=== PATIENT | female | born 1995 | race Two or more races ===

== ENCOUNTER → 2021-01-31 | Outpatient (CLI) | payer OTHER ==
--- NOTE | 2021-01-31 14:56 | REP ---
INDICATION: LT LEG PAIN, S/P KNEE SURGERY. COMPARISON: None. TECHNIQUE: Multiple ultrasonographic images of the deep venous structures of the left lower extremity were obtained from the inguinal ligament to the ankle. Venous compression techniques, color doppler imaging, and augmentation techniques were also obtained where appropriate. As per the ACR guidelines the anterior tibial vein can not be effectively evaluated. Only compression techniques in the calf on the peroneal and posterior tibial veins was attempted/performed. FINDINGS: There is no abnormal echogenic material seen within any of the visualized deep venous structures that would suggest acute thrombosis. Coaptation is unremarkable throughout. Doppler interrogation shows an expected response to respiratory variability and augmentation in the thigh. Compression techniques in the calf showed no abnormality. The color flow images show what appears to be a normal vascular pattern throughout the thigh. IMPRESSION: There is no ultrasonographic evidence of deep venous thrombosis involving any of the visualized deep venous structures of the left lower extremity as described above. <Electronically signed by Jimbo Tijerina > 01/31/21 [id number]
== END ==
LOC: M RAD 13:56
PROVIDERS: ATTEND Physician Assistant Surgical
DX: M79.662 Pain in left lower leg (principal); S83.282D Other tear of lateral meniscus, current injury, left knee, subsequent encounter; W18.30XD Fall on same level, unspecified, subsequent encounter; Y92.009 Unspecified place in unspecified non-institutional (private) residence as the place of occurrence of the external cause

== ENCOUNTER 2025-03-03 08:26 | Inpatient (IN) | payer MEDICAID, OTHER ==
[~2025-03-03] VITALS: Ht 165.1 cm; Wt 68.8 kg
[2025-03-03 09:57] LABS: KETONE, URINE AUTO RFX NEGATIVE (NEGATIVE); LEUKOCYTE ESTERASE UR AUTO RFX NEGATIVE (NEGATIVE); NITRITE, URINE AUTO RFX NEGATIVE (NEGATIVE); RBC, URINE AUTO RFX 0 /HPF (0-3); SQUAM EPITHELIAL CELL UR AURFX 4 /HPF (0-6); WBC, URINE AUTO RFX 0 /HPF (0-3)
[2025-03-03 10:07] LABS: BASO # 0.0 10^3/uL (0.0-0.2); BASO % 0.2 % (0.0-1.0); EOS # 0.1 10^3/uL (0.0-0.5); EOS % 0.6 % (0.0-3.0); LYMPH # 1.4 10^3/uL (1.5-5.0); LYMPH % 8.4 % (24.0-44.0); MONO # 0.7 10^3/uL (0.0-0.8); MONO % 4.6 % (2.0-8.0); NEUTROPHILS # 13.7 10^3/uL (1.5-8.5); NEUTROPHILS % 85.9 % (36.0-66.0)
[2025-03-03 10:07] LABS: URINE PREG TEST NEGATIVE (NEGATIVE)
[2025-03-03 10:09] LABS: PLATELET COUNT, AUTOMATED 247 10^3/uL (150-450)
[2025-03-03] MEDS ORDERED: ISOVUE-370 76% 100 ML VIAL As Ordered ONE (10:13)
[2025-03-03] MEDS: ONDANSETRON 4MG 2ML VIAL IV ONE ×2 (10:21→13:50)
[2025-03-03] MEDS: NS (Normal Saline) 0.9% 1,000 ML IV ONE (10:21)
[2025-03-03] MEDS: FAMOTIDINE 20 MG/2 ML VIAL IVP ONE (10:21)
[2025-03-03 10:22] LABS: INR 0.87
[2025-03-03] MEDS: MORPHINE 2 MG/ML 1 ML VIAL IV PRN (10:22)
[2025-03-03 10:34] LABS: ALT/SGPT 33 U/L (7.0-40); AST/SGOT 30 U/L (<34)
[2025-03-03 12:13] LABS: ERYTHROCYTE SEDIMENTATION RATE 38 mm/hr (0-20)
[2025-03-03 12:14] LABS: C REACTIVE PROTEIN QUANTITATIV 1.01 MG/DL (<1.0)
[2025-03-03] MEDS ORDERED: MORPHINE 4 MG/ML 1 ML VIAL IV PRN (13:50)
[2025-03-03] MEDS: MORPHINE 4 MG/ML 1 ML VIAL IV PRN ×2 (14:20→20:36)
[2025-03-03] MEDS ORDERED: ACET-897 PO (14:45)
[2025-03-03] MEDS ORDERED: HOME MED LIST COMPLETE! XX SCH (14:50)
[2025-03-03] MEDS: NS (Normal Saline) 0.9% 1,000 ML IV SCH (17:07)
[2025-03-03] MEDS: DICYCLOMINE 10 MG CAP PO SCH (17:07)
[2025-03-03 17:18] VITALS: BP 103/62; TEMP 98.4; O2SAT 99
[2025-03-03 20:28] VITALS: BP 111/55; TEMP 98.2; O2SAT 99
[2025-03-03] MEDS: PANTOPRAZOLE 40MG TAB PO SCH (20:36)
[2025-03-04 04:19] VITALS: BP 97/57; TEMP 98.2; O2SAT 98
[2025-03-04 06:40] LABS: BASO # 0.0 10^3/uL (0.0-0.2); BASO % 0.2 % (0.0-1.0); EOS # 0.2 10^3/uL (0.0-0.5); EOS % 2.5 % (0.0-3.0); LYMPH # 1.4 10^3/uL (1.5-5.0); LYMPH % 16.9 % (24.0-44.0); MONO # 0.6 10^3/uL (0.0-0.8); MONO % 6.6 % (2.0-8.0); NEUTROPHILS # 6.2 10^3/uL (1.5-8.5); NEUTROPHILS % 73.3 % (36.0-66.0); PLATELET COUNT, AUTOMATED 237 10^3/uL (150-450)
[2025-03-04 06:47] LABS: CALCIUM LEVEL 8.0 MG/DL (8.5-10.1); CARBON DIOXIDE LEVEL 27 MMOL/L (20-31); CHLORIDE LEVEL 107 MMOL/L (98-107); CREATININE FOR GFR 0.82 MG/DL (0.55-1.30); GLOMERULAR FILTRATION RATE > 90.0 (>60); MAGNESIUM LEVEL 1.6 MG/DL (1.8-2.4); POTASSIUM SERUM 3.9 MMOL/L (3.5-5.1); SODIUM LEVEL 143 MMOL/L (136-145)
[2025-03-04] MEDS: HEPARIN SOD 5000 UNITS/ML 1 ML VIAL/SYRINGE SC SCH (08:10)
[2025-03-04] MEDS: MAG SULF 1GM/100ML (MAG RUN) 1 GM in IV 1 EA IV SCH (08:10)
[2025-03-04] MEDS ORDERED: cefTRIAXone SOD 2 GM in DEXTROSE 5% (D5W) ADV/MINI-BAG 50 ML IV SCH (10:30)
[2025-03-04 11:35] VITALS: BP 98/61; TEMP 98.4; O2SAT 98
[2025-03-04] MEDS: cefTRIAXone SOD 2 GM in DEXTROSE 5% (D5W) ADV/MINI-BAG 50 ML IV SCH (12:03)
[2025-03-04] MEDS: AZITHROMYCIN 250 MG TABLET PO SCH (12:03)
[2025-03-04] MEDS: ACETAMINOPHEN 325 MG TAB PO PRN (14:41)
[2025-03-04 20:22] VITALS: BP 102/64; TEMP 97.3; O2SAT 99
[2025-03-05 05:15] VITALS: BP 110/62; TEMP 98.8; O2SAT 99
[2025-03-05 07:13] LABS: CALCIUM LEVEL 8.5 MG/DL (8.5-10.1); CARBON DIOXIDE LEVEL 27 MMOL/L (20-31); CHLORIDE LEVEL 106 MMOL/L (98-107); CREATININE FOR GFR 0.81 MG/DL (0.55-1.30); GLOMERULAR FILTRATION RATE > 90.0 (>60); MAGNESIUM LEVEL 2.0 MG/DL (1.8-2.4); POTASSIUM SERUM 4.3 MMOL/L (3.5-5.1); SODIUM LEVEL 142 MMOL/L (136-145)
[2025-03-05 08:00] VITALS: BP 104/66; TEMP 98.6; O2SAT 99
[2025-03-05] MEDS ORDERED: PILL CUTTER 1 EACH XX ONE (11:02)
[2025-03-05] MEDS: CALCIUM CARBONATE 500 MG CHEW U/D PO ONE (11:06)
[2025-03-05] MEDS: SIMETHICONE 80MG CHEW TAB PO SCH (11:06)
[2025-03-05] MEDS: PERCOCET 5MG/325MG TAB PO PRN (11:07)
[2025-03-05] MEDS ORDERED: PERCOCET PO (11:40)
[2025-03-05] MEDS ORDERED: PANT40TA29 PO (11:40)
[2025-03-05] MEDS ORDERED: SIME80CH6 PO (11:40)
[2025-03-05] MEDS ORDERED: AZIT-12 PO (11:40)
[2025-03-05] MEDS ORDERED: DICY1CAP8 PO (11:40)
[2025-03-05] MEDS ORDERED: CEFD300CAP PO (11:57)
== END 2025-03-05 13:00 | disposition home or self-care (01) | DRG 248 ==
LOC: M ED 08:26 → CMPBEDREQ 14:37 → M ED INP 15:36 → M MSPAV 17:12
PROVIDERS: ADMIT Student in an Organized Health Care Education/Training Program; ATTEND Student in an Organized Health Care Education/Training Program
DX: A04.5 Campylobacter enteritis (principal); A04.6 Enteritis due to Yersinia enterocolitica